=== PATIENT | male | born 1940 | race Caucasian/White ===

== ENCOUNTER 2025-02-07 10:15 | Outpatient (RCR) | payer MEDICARE, OTHER, SELFPAY ==
[2025-01-17 10:47] VITALS: BP 100/41; PULSE 75; RESP 18; TEMP 36.3; BMI 36.5
--- NOTE | 2025-01-17 12:11 | HP.PCM_ITS ---
History of Present Illness Date of Service: 01/17/25 Chief Complaint: Follow-up for a decubitus ulcer on the left buttocks, groin candidiasis severe, open areas on left lower leg from swelling and stasis dermatitis. History of Wound: 84-year-old white male who lives in a assisted living in [place] [facility] was brought in by his daughter. He is wheelchair- bound now since he had broken his right ankle. Which is healed by now but he still is not real good walking. He has severe swelling of the left leg right leg still looks good he does wear a brace on the right leg. Daughter and patient also state he sleeps in a recliner he does not sleep in a bed refuses to sleep in a bed. Does sit on a gel pack but he sits most of the day and does not walk and does not offload very well at all. History of congestive heart failure he had a heart stent and he currently has a Owens to because of his severe candidiasis of his groin area and penis. [facility] Home Medications ?Medication ?Instructions ?Recorded ?Last Taken ?Type aspirin 81 mg tablet,delayed 81 mg PO DAILY 01/17/25 U nknown History release (Adult Aspirin Regimen) atorvastatin 40 mg tablet 40 mg PO DAILY 01/17/25 Unkn own History bumetanide 1 mg tablet 2 mg PO DAILY 01/17/25 Unkno wn History calcium 500 mg (as 1 tab PO DAILY 01/17/25 Unkn own History carbonate)-vitamin D3 10 mcg (400 unit) tablet (Calcium 500 With D) cephalexin 500 mg tablet 500 mg PO DAILY 01/17/25 Unk nown History citalopram 10 mg tablet 10 mg PO DAILY 01/17/25 Unkn own History clotrimazole-betamethasone 1 applic topical 01/17/25 U nknown History %-0.05 % topical cream diphenhydramine HCl 25 mg capsule 50 mg PO QHS 5 Unknown History (Aler-Cap) empagliflozin 10 mg tablet 10 mg PO DAILY 01/17/25 Unk nown History (Jardiance) ezetimibe 10 mg tablet 10 mg PO DAILY 01/17/25 Unkn own History fexofenadine 180 mg tablet 180 mg PO DAILY 01/17/25 Un known History (Fanny Allergy) isosorbide mononitrate 30 mg 30 mg PO DAILY 01/17/25 U nknown History tablet,extended release 24 hr losartan 25 mg tablet 25 mg PO DAILY 01/17/25 Unkn own History metoprolol succinate 25 mg 25 mg PO DAILY 01/17/25 Unk nown History tablet,extended release 24 hr multivitamin (Daily Multi-Vitamin 1 tab PO DAILY 01/17 Unknown History tablet) nystatin 100,000 unit/gram topical 1 applic topical BI D 01/17/25 Unknown History ointment nystatin 100,000 unit/gram topical topical 01/17/25 Un known History powder omeprazole 20 mg capsule,delayed 20 mg PO DAILY Unknown History release potassium chloride 10 mEq 10 meq PO DAILY 01/17/25 Unk nown History tablet,extended release spironolactone 25 mg tablet 25 mg PO DAILY 01/17/25 Un known History spironolactone 25 mg tablet 25 mg PO DAILY 01/17/25 Un known History (Aldactone) tamsulosin 0.4 mg capsule 0.4 mg PO DAILY 01/17/25 Unk nown History trazodone 50 mg tablet 50 mg PO QHS 01/17/25 Unknow n History zinc sulfate 50 mg zinc (220 mg) 50 mg PO DAILY Unknown History capsule Social History Smoking Status: Never smoker ROS Constitutional Constitutional: Reports systems reviewed and no addt'l complaints, except as documented Eyes Eyes: Reports systems reviewed and no addt'l complaints, except as documented ENT HEENT: Reports systems reviewed and no addt'l complaints, except as documented Cardiovascular Cardiovascular: Reports systems reviewed and no addt'l complaints, except as d ocumented Respiratory/Chest Respiratory/Chest: Reports systems reviewed and no addt'l complaints, except as documented Gastrointestinal Gastrointestinal: Reports systems reviewed and no addt'l complaints, except as documented Genitourinary Genitourinary: Denies dysuria, hematuria, nocturia, oliguria, urinary frequency, urinary hesitancy, urinary incontinence or urinary urgency Musculoskeletal Musculoskeletal: Reports difficulty walking, limited range of motion and other Details: None ambulatory Integumentary Integumentary: Reports erythema, wounds and other Details: Groin has severe candidiasis encompassing his groin mostly on his left and covering his penis. Very erythematous and wet looking painful also has a wound on his left buttocks and a wound on his left lower leg that looks more like stasis dermatitis with skin breakdown. And swelling to the left lower leg also Neurologic Neurologic: Reports systems reviewed and no addt'l complaints, except as documented and weakness Psychiatric Psychiatric: Reports systems reviewed and no addt'l complaints, except as documented Endocrine Endocrinology: Reports systems reviewed and no addt'l complaints, except as documented Hematologic/Lymphatic Hematologic/Lymphatic: Reports systems reviewed and no addt'l complaints, except as documented Allergic/Immunologic Allergic/Immunologic: Reports systems reviewed and no addt'l complaints, except as documented Vital Signs Vital Signs Vital Signs: 01/17/25 10:47 Temperature 97.4 F L Temperature Source Temporal Pulse Rate 75 Respiratory Rate 18 Blood Pressure 100/41 L Blood Pressure Mean 60 Blood Pressure Source Monitor Blood Pressure Position Semi-Fowlers Blood Pressure Location Left Arm Weight Weight: 240 lb Body Mass Index (BMI) 36.5 Physical Exam Const oriented x3 General Appearance: cooperative Exam Limitations: no limitations HEENT normocephalic Head and Scalp: normal to inspection Face and Sinus: normal facial exam Eyes General Eye: normal appearance of both eyes Neck full ROM General: normal visual inspection Resp normal respiratory effort Effort and Inspection: able to speak in complete sentences Auscultation: clear to auscultation bilaterally Cardio regular rate and regular rhythm Palpation: normal PMI Rate: regular rate Rhythm: regular rhythm GI soft to palpation Palpation: soft and no hepatosplenomegaly Narrative: Currently has a Owens to CD because of his severe yeast infection in his groin. Bladder / Kidney Exam: catheter in place urethral Penis: erythema Meatus: erythema Back/Spine Cervical Spine: cervical ROM normal Thoracic Spine / Upper Back: normal to inspection Lumbar Spine / Lower Back: normal to inspection Pelvis: buttocks abnormal left (Open wound left buttocks decubitus ulcer) Extremity Extremity Narrative: Right leg within normal limits left leg swollen and has stasis dermatitis with a lot of redness and skin breakdown on the anterior cai area General Extremity: normal exam except as noted Skin no rashes or lesions noted Wound Narrative: Left buttocks left lower leg and candidiasis of his groin area severe Neuro oriented x3 Meningeal Signs: no meningeal signs Psych Appearance: grossly normal Speech: normal speech Thought Content: normal thought content Judgement: judgement good Debridement Note Debridement Note Wound debrided: Left buttocks decubitus ulcer Laterality: Left Wound Grade/Stage: Stage II Type of Debridement: Excisional debridement Anesthesia Used: 5% Lidocaine Gel Depth: Down to and including healthy tissue and in the subcutaneous layer Percentage of wound debrided: 100 Instrument Used: 5mm curette Tissue Removed: Fibrin and some devitalized tissue Severity: Fat Layer Exposed Amount of bleeding with debridement: Mild Bleeding Controlled with: Compression and gauze Patient tolerated procedure: Patient tolerated procedure well Post-Debridement Measurements and Additional Note: Post-Debridement Measurements/Treatment - Nurse 1 - General Ulcer Assessment Start: 01/17/25 09:24 Freq: Status: Active Protocol: LOWEXBenjamin Activity Type Activity Date Activity User E-sign Co-sign Detail Recorded Client Recorded Date Recorded By Document 01/17/25 10:47 SHASHA [id number] 01/17/25 10:57 SHASHA 01/17/25 10:47 - Today's Visit Information Type of service Initial Visit Arrival Mode Ambulatory Transfer Assistance None Patient Identification Verified (Name & Yes ) Patient Requires Transmission-Based No Precautions Height and Weight Height 5 ft 8 in Weight 240 lb Weight in Pounds 240.0 lbs Body Mass Index (BMI) 36.5 BMI Classification Obese Vital Signs Temperature (97.8 F-99.1 F) 97.4 F L Temperature Source Temporal Pulse Rate (60-100) 75 Pulse Location Monitor Respiratory Rate (12-18) 18 Respiratory rate source Observation Blood Pressure (90/60-120/80) 100/41 L Blood Pressure Mean 60 Source Monitor Position Semi-Fowlers Blood Pressure Location Left Arm History Since Last Visit- (Skip if this is Patient's initial visit) Have you changed medications since your No last visit? Any new allergies or adverse reactions No Had a fall/change in ADL's that may No increase risk of falls Signs or symptoms of abuse and/or No neglect since last visit Have you been in the hospital since your No last visit? Has dressing in place as prescribed Yes Has compression in place as prescribed N/A Has offloadiing in place as prescribed N/A Experienced any changes in pain level or No management Left Footwear No Footwear Right Footwear No Footwear Pain Scale: 0-10 Numeric Is Patient Pain Free? Yes Lower Extremity Assessment/ Foot Assessment/ Toe Nail Assessment Right -Posterior Tibial Palpable Yes -Dorsalis Pedis Palpable Yes -Extremity Color Hyperpigmented -Hair Growth on Legs No -Hair Growth on Toes No -Temperature of Extremity Warm -Capillary Refill Less than 3 Seconds -Dependent Rubor No -Blanched when Elevated No -Lipodermatosclerosis No -Other Deformity No -Prior Foot Ulcer No -Charcot Joint No -Prior Amputation No -Thick Yes -Discolored No -Deformed No -Improper Length & Hygeine No Left -Posterior Tibial Palpable Yes -Dorsalis Pedis Palpable Yes -Extremity Color Hyperpigmented -Hair Growth on Legs No -Hair Growth on Toes No -Temperature of Extremity Warm -Capillary Refill Less than 3 Seconds -Dependent Rubor No -Blanched when Elevated No -Lipodermatosclerosis No -Other Deformity No -Prior Foot Ulcer No -Charcot Joint No -Prior Amputation No -Thick Yes -Discolored No -Deformed No -Improper Length & Hygeine No Neuropathy Assessment Feet - Top Side and Bottom <Entered> (a) Communication Assessment Preferred language Sudanese [employer] Machine Required No Able to Read Yes Able to Write Yes Communication Tools None Caregiver Communication Skills No Impairment Impairment Right Hearing Abillity Use of Hearing Aid Left Hearing Abillity Use of Hearing Aid Visual Assistive Devices Glasses Teaching Assessment Preferences Verbal,Written, Demonstration Barriers to Learning None Readiness To Learn Good Willingness to Engage in Self Management Med Activies Readiness to Engage in Self Management Med Activities Anxiety Level Calm Cooperation Cooperative Perception Coherent Interest in Health Problem Asks Questions Education Importance Acknowledges Need Does Patient Smoke tobacco or other No substances Smoking Status Never smoker Is Patient Diabetic No Functional Assessment Recent Decline in Ability to Perform Ambulation, Bathing,Lower Body Dressing, Toileting, Transferring, Upper Body Dressing Assistive Device With Patient Yes Culture/Restorationist/Chemical Operator Cultural/Restorationist Needs that may affect No Treatment Plan Would you allow our hospital studio couch frame builder to No meet you for the purpose of spiritual/ emotional support? Chemical Operator to contact place of amish No Teaching: Wound Center *Welcome to the Wound Center -Person Taught Patient,Family -Teaching Method Discussion, Demonstration -Response to teaching Return Demonstration (a) 1 - -throughtout 2 - +_ 3 - + WC - Nurse 1 - General Ulcer Measurement Start: 01/17/25 09:24 Freq: Status: Active Protocol: Activity Type Activity Date Activity User E-sign Co-sign Detail Recorded Client Recorded Date Recorded By Document 01/17/25 10:47 RB [id number] 01/17/25 10:57 RB Edit Result 01/17/25 10:47 RB (1) [id number] 01/17/25 11:37 RB (1) 2. L buttock - Wound Comment(s) => REDDNESS AND EXCORIATION TO GROIN AREA AND PENIS. OWENS CATHETAR INTACT NO CATH SECURE NOTED. VOICED CONCERN TO DAUGHTER ABOUT NOT CTAH SECURE AND ALSO WASHING AND DRYING PERIAREA DAILY 01/17/25 10:47 Wound Center Nurse 1 2. L buttock -Combined with other wound No -Current Size (cm) - Length 1.5 -Current Size (cm) - Width 3 -Current Size (cm) - Depth 0.1 -Total Square Cm 4.5 -Photo Taken Yes -Tunneling No -Undermining/Tunneling No -Circular Undermining No -Exudate Amt Medium -Exudate Type Serosanguineous -Wound Margin Distinct, Outline Attached -Granulation Amt Medium (34-66%) -Granulation Quality Scalp Level -Slough/Fibrin Yes -Necrosis Amt Small (1-33%) -Necrotic Tissue Type Adherent Slough -Structure Exposed N/A -Texture (Madison-wound Skin Appearance) Assessed -Moisture (Madison-wound Skin Appearance) Assessed -Color (Madison-wound Skin Appearance) Assessed -Temperature (Madison-wound Skin No Abnormality Appearance) (Pt Warm) -Tenderness on Palpation (Madison-wound No Skin Appearance) -Ulcer Cleansing Wound Cleanser -Foul Odor after Cleansing No -Anesthetic Used 5% Lidocaine Gel -Wound Comment(s) REDDNESS AND EXCORIATION TO GROIN AREA AND PENIS. OWENS CATHETAR INTACT NO CATH SECURE NOTED. VOICED CONCERN TO DAUGHTER ABOUT NOT CTAH SECURE AND ALSO WASHING AND DRYING PERIAREA DAILY 1. LLE medial cluster -Combined with other wound No -Current Size (cm) - Length 2.2 -Current Size (cm) - Width 3.5 -Current Size (cm) - Depth 0.1 -Total Square Cm 7.70 -Photo Taken Yes -Tunneling No -Undermining/Tunneling No -Circular Undermining No -Exudate Amt Medium -Exudate Type Serosanguineous -Wound Margin Distinct, Outline Attached -Granulation Amt Medium (34-66%) -Granulation Quality Scalp Level -Slough/Fibrin Yes -Necrosis Amt Small (1-33%) -Necrotic Tissue Type Adherent Slough -Structure Exposed N/A -Texture (Madison-wound Skin Appearance) Assessed -Moisture (Madison-wound Skin Appearance) Assessed,Dry/ Scaly -Color (Madison-wound Skin Appearance) Assessed -Temperature (Madison-wound Skin No Abnormality Appearance) (Pt Warm) -Tenderness on Palpation (Madison-wound No Skin Appearance) -Ulcer Cleansing Wound Cleanser -Foul Odor after Cleansing No -Anesthetic Used 5% Lidocaine Gel Lower Limb Edema Present Yes Right Calf (cm) 40 Right Ankle (cm) 26.2 Left Calf (cm) 43.5 Left Ankle (cm) 27.5 WC - Nurse 2 - General Ulcer CM Notes Start: 01/17/25 09:24 Freq: Status: Active Protocol: Activity Type Activity Date Activity User E-sign Co-sign Detail Recorded Client Recorded Date Recorded By Document 01/17/25 11:16 [facility] [id number] 01/17/25 11:37 [facility] 01/17/25 11:16 Wound Center Nurse 2 2. L buttock -Time 11:26 -Correct Patient Yes -Correct Side, Site, Position Yes -Correct Procedure Yes -Procedure Performed Yes -Type of Procedure Debridement -Clinical Debridement Subcutaneous -Tissue Removed Subcutaneous -Post Debridement (cm) - Length 1.7 -Post Debridement (cm) - Width 3.2 -Post Debridement (cm) - Depth 0.2 -Total Square (Post) (cm) 5.44 -Area of Debridement (cm) - Length 1.7 -Area of Debridement (cm) - Width 3.2 -Total Square (Area) (cm) 5.44 -Tunneling No -Undermining/Tunneling No -Circular Undermining No -Wound/Ulcer Outcome Not Healed -Ulcer Cleansing Rinsed/ Irrigated with Saline -Foul Odor after Cleansing No -Bioengineered Tissue No -Bleeding Controlled with Pressure -Treatment Response Procedure Tolerated Well -Debridement - Subq, 1st 20sq cm No 1. LLE medial cluster -Time 11:18 -Correct Patient Yes -Correct Side, Site, Position Yes -Correct Procedure Yes -Procedure Performed Yes -Type of Procedure Debridement -Clinical Debridement Subcutaneous -Tissue Removed Subcutaneous -Post Debridement (cm) - Length 19 -Post Debridement (cm) - Width 14 -Post Debridement (cm) - Depth 0.1 -Total Square (Post) (cm) 266 -Area of Debridement (cm) - Length 19 -Area of Debridement (cm) - Width 14 -Total Square (Area) (cm) 266 -Tunneling No -Undermining/Tunneling No -Circular Undermining No -Wound/Ulcer Outcome Not Healed -Ulcer Cleansing Rinsed/ Irrigated with Saline -Foul Odor after Cleansing No -Bioengineered Tissue No -Bleeding Controlled with Pressure -Treatment Response Procedure Tolerated Well -Debridement - Subq, 1st 20sq cm Yes -Debridement, SubQ, ea addt'l 20sq cm 13 or part thereof Pain Scale: 0-10 Numeric Is Patient Pain Free? Yes - Nurse 3 - General Ulcer D/C NN Start: 01/17/25 09:24 Freq: Status: Active Protocol: Activity Type Activity Date Activity User E-sign Co-sign Detail Recorded Client Recorded Date Recorded By Document 01/17/25 11:44 MT [id number] 01/17/25 11:47 MT Edit Result 01/17/25 11:44 MT (1) [id number] 01/17/25 11:48 MT (1) RLE - Tubular Bandage => Double Layer - Size of Tubigrip Used => Size F - Size F ($) => 2 LLE - Tubular Bandage => Double Layer - Size of Tubigrip Used => Size F - Size F ($) => 2 Notes: => pt and daughter verbalized understanding of new wound dressings. 01/17/25 11:44 Wound Care Center Nurse 3 2. L buttock -Primary Dressing Applied Fibracol Plus 4x4,Silicone Border Foam 4x4 -Other Dressing adaptic -Primary Dressing Covered/Secured with Dry Gauze -Fibracol Plus 4x4 1 -Silicone Border Foam 4x4 1 1. LLE medial cluster -Other Dressing xerofrom -Primary Dressing Covered/Secured with Dry Gauze,Dry Gauze & Roll Gauze RLE -Tubular Bandage Double Layer -Size of Tubigrip Used Size F -Size F ($) 2 LLE -Tubular Bandage Double Layer -Size of Tubigrip Used Size F -Size F ($) 2 Pain Scale: 0-10 Numeric Is Patient Pain Free? Yes WC - Visit Discharge Discharge Condition Stable Ambulatory Status Ambulatory Transportation Private Auto Medication Reconcilliation completed & No provided to patient/care provider Clinical Summary of Care Provided Yes Notes: pt and daughter verbalized understanding of new wound dressings. Additional Wound Wound debrided: Left lower leg stasis dermatitis from peripheral vascular disease Type of Debridement: Excisional debridement Anesthesia Used: 5% Lidocaine Gel Depth: Down to and including healthy tissue Percentage of wound debrided: 100 Instrument Used: 5mm curette Tissue Removed: Devitalized tissue and fibrin Severity: Fat Layer Exposed Amount of bleeding with debridement: Mild Bleeding Controlled with: Compression and gauze Patient tolerated procedure: Patient tolerated procedure well Assessment/Plan Assessment/Plan (1) Peripheral vascular disease with stasis dermatitis: CODE(S): I87.2 - Venous insufficiency (chronic) (peripheral) (2) Candidiasis of genitalia: CODE(S): B37.49 - Other urogenital candidiasis PLAN: Wash groin area with soap and water and pat dry can still use the nystatin powder to the areas as prescribed before but also start taking fluconazole 100 mg every day for 30 days. Follow-up in 1 week Need labs prealbumin and a CBC. (3) Decubitus ulcer of left buttock, stage 2: CODE(S): L89.322 - Pressure ulcer of left buttock, stage 2 PLAN: Wash left buttocks was in Dial soap pat dry apply fibber call to left buttocks wound base moistened cover with Adaptic and a gel SAP dressing every day follow-up in 1 week (4) Edema of right lower leg: CODE(S): R60.0 - Localized edema (5) Congestive heart failure: CODE(S): I50.9 - Heart failure, unspecified QUALIFIERS: Heart failure type: right-sided Heart failure chronicity: chronic Qualified Code(s): I50.812 - Chronic right heart failure PLAN: Double layer Tubigrip to the bilateral lower legs for swelling
--- NOTE | 2025-01-18 10:42 | WC ---
PHOTO 01/17/25
--- NOTE | 2025-01-18 10:43 | WC ---
PHOTO 01/17/25 [facility]
[2025-01-24 10:29] VITALS: BP 126/47; PULSE 58; RESP 18; TEMP 36.1; BMI 36.5
--- NOTE | 2025-01-24 11:45 | PN.PCM_ITS ---
History of Present Illness Date of Service: 01/24/25 Chief Complaint: Follow-up for a decubitus ulcer on the left buttocks, groin candidiasis severe, open areas on left lower leg from swelling and stasis dermatitis. History of Wound: 84-year-old white male who lives in a assisted living in [place] [facility] was brought in by his daughter. He is wheelchair- bound now since he had broken his right ankle. Which is healed by now but he still is not real good walking. He has severe swelling of the left leg right leg still looks good he does wear a brace on the right leg. Daughter and patient also state he sleeps in a recliner he does not sleep in a bed refuses to sleep in a bed. Therefore has a huge open area on his left buttocks with positive depth opening. Does sit on a gel pack but he sits most of the day and does not walk and does not offload very well at all. History of congestive heart failure he had a heart stent and he currently has a Owens to because of his severe candidiasis of his groin area and penis. Progress of Wound: Left lower leg cluster is resolved using the Xeroform daughter is very happy buttocks still has an open area will continue using the Fibracol and Adaptic and foam dressing on it measurements are about the same to smaller on that. The left buttocks is doing better with the Fibracol and Adaptic and foam we will continue using that measurements are smaller And then the candidiasis he is doing well on the Diflucan is taking it daily and its like started to fade and looks much improved they are also using the topical nystatin powder on him also. Subjective Subjective Both patient and daughter are happy with outcomes Objective Data Objective Data Continues to improve we will continue using the Fibracol and Adaptic on the buttocks left leg just continue wearing the Tubigrip for compression. Vital Signs: Vital Signs Temp Pulse Resp BP O2 Del Method 96.9 F L 58 L 18 126/47 H Room Air 01/24/25 10:01/24/25 10:29 01/24/25 10:29 01/24/25 10:01/24/25 10:29 Oxygen Delivery Method Room Air Weight: 240 lb Body Mass Index (BMI) 36.5 Lab / Micro Data Attestation: I reviewed the patient's lab results. Physical Exam Const oriented x3 General Appearance: cooperative Exam Limitations: no limitations HEENT normocephalic Head and Scalp: normal to inspection Face and Sinus: normal facial exam Eyes General Eye: normal appearance of both eyes Neck full ROM General: normal visual inspection Resp normal respiratory effort Effort and Inspection: able to speak in complete sentences Auscultation: clear to auscultation bilaterally Cardio regular rate and regular rhythm Palpation: normal PMI Rate: regular rate Rhythm: regular rhythm GI soft to palpation Palpation: soft and no hepatosplenomegaly Narrative: Currently has a Owens to CD because of his severe yeast infection in his groin. Bladder / Kidney Exam: catheter in place urethral Penis: erythema Meatus: erythema Back/Spine Cervical Spine: cervical ROM normal Thoracic Spine / Upper Back: normal to inspection Lumbar Spine / Lower Back: normal to inspection Pelvis: buttocks abnormal left (Open wound left buttocks decubitus ulcer) Extremity Extremity Narrative: Right leg within normal limits left leg swollen and has stasis dermatitis with a lot of redness and skin breakdown on the anterior cai area General Extremity: normal exam except as noted Skin no rashes or lesions noted Wound Narrative: Left buttocks left lower leg and candidiasis of his groin area severe Neuro oriented x3 Meningeal Signs: no meningeal signs Psych Appearance: grossly normal Speech: normal speech Thought Content: normal thought content Judgement: judgement good Debridement Note Debridement Note Wound debrided: Left buttocks decubitus ulcer Laterality: Left Wound Grade/Stage: Stage II Type of Debridement: Excisional debridement Anesthesia Used: 5% Lidocaine Gel Depth: Down to and including healthy tissue and in the subcutaneous layer Percentage of wound debrided: 100 Instrument Used: 5mm curette Tissue Removed: Fibrin and some devitalized tissue Severity: Fat Layer Exposed Amount of bleeding with debridement: Mild Bleeding Controlled with: Compression and gauze Patient tolerated procedure: Patient tolerated procedure well Post-Debridement Measurements and Additional Note: Post-Debridement Measurements/Treatment WC - Nurse 1 - General Ulcer Assessment Start: 01/17/25 09:24 Freq: Status: Active Protocol: WILLARD Activity Type Activity Date Activity User E-sign Co-sign Detail Recorded Client Recorded Date Recorded By Document 01/17/25 10:47 RB [id number] 01/17/25 10:57 RB Document 01/24/25 10:29 KW [id number] 01/24/25 10:47 KW 01/17/25 01/24/25 10:47 10:29 WC - Today's Visit Information Type of service Initial Visit Initial Visit Arrival Mode Ambulatory Wheelchair Transfer Assistance None Accompanied by daughter Patient Identification Verified (Name & Yes Yes ) Patient Requires Transmission-Based No Precautions Height and Weight Height 5 ft 8 in Weight 240 lb Weight in Pounds 240.0 lbs Body Mass Index (BMI) 36.5 36.5 BMI Classification Obese Obese Vital Signs Temperature (97.8 F-99.1 F) 97.4 F L 96.9 F L Temperature Source Temporal Temporal Pulse Rate (60-100) 75 58 L Pulse Location Monitor Monitor Respiratory Rate (12-18) 18 18 Respiratory rate source Observation Observation Oxygen Delivery Method Room Air Blood Pressure (90/60-120/80) 100/41 L 126/47 H Blood Pressure Mean (mm Hg) 60 73 Source Monitor Monitor Position Semi-Fowlers Sitting Blood Pressure Location Left Arm Left Arm History Since Last Visit- (Skip if this is Patient's initial visit) Have you changed medications since your No No last visit? Any new allergies or adverse reactions No No Had a fall/change in ADL's that may No No increase risk of falls Signs or symptoms of abuse and/or No No neglect since last visit Have you been in the hospital since your No No last visit? Has dressing in place as prescribed Yes Yes Has compression in place as prescribed N/A Yes Has offloadiing in place as prescribed N/A Yes Experienced any changes in pain level or No No management Left Footwear No Footwear Removable Cast Walker/Walking Boot Right Footwear No Footwear Regular Shoe Pain Scale: 0-10 Numeric Is Patient Pain Free? Yes Yes Lower Extremity Assessment/ Foot Assessment/ Toe Nail Assessment Right -Posterior Tibial Palpable Yes -Dorsalis Pedis Palpable Yes -Extremity Color Hyperpigmented -Hair Growth on Legs No -Hair Growth on Toes No -Temperature of Extremity Warm -Capillary Refill Less than 3 Seconds -Dependent Rubor No -Blanched when Elevated No -Lipodermatosclerosis No -Other Deformity No -Prior Foot Ulcer No -Charcot Joint No -Prior Amputation No -Thick Yes -Discolored No -Deformed No -Improper Length & Hygeine No Left -Posterior Tibial Palpable Yes -Dorsalis Pedis Palpable Yes -Extremity Color Hyperpigmented -Hair Growth on Legs No -Hair Growth on Toes No -Temperature of Extremity Warm -Capillary Refill Less than 3 Seconds -Dependent Rubor No -Blanched when Elevated No -Lipodermatosclerosis No -Other Deformity No -Prior Foot Ulcer No -Charcot Joint No -Prior Amputation No -Thick Yes -Discolored No -Deformed No -Improper Length & Hygeine No Neuropathy Assessment Feet - Top Side and Bottom <Entered> (a) Communication Assessment Preferred language [place] Event Coordinator Marketing And Sales Required No Able to Read Yes Able to Write Yes Communication Tools None Caregiver Communication Skills No Impairment Impairment Right Hearing Abillity Use of Hearing Aid Left Hearing Abillity Use of Hearing Aid Visual Assistive Devices Glasses Teaching Assessment Preferences Verbal,Written, Demonstration Barriers to Learning None Readiness To Learn Good Willingness to Engage in Self Management Med Activies Readiness to Engage in Self Management Med Activities Anxiety Level Calm Cooperation Cooperative Perception Coherent Interest in Health Problem Asks Questions Education Importance Acknowledges Need Does Patient Smoke tobacco or other No substances Smoking Status Never smoker Is Patient Diabetic No Functional Assessment Recent Decline in Ability to Perform Ambulation, Bathing,Lower Body Dressing, Toileting, Transferring, Upper Body Dressing Assistive Device With Patient Yes Culture/Lutheran/Product Development Director Cultural/Lutheran Needs that may affect No Treatment Plan Would you allow our hospital director of flight operations to No meet you for the purpose of spiritual/ emotional support? Product Development Director to contact place of mu-ism No Teaching: Wound Center *Welcome to the Wound Center -Person Taught Patient,Family -Teaching Method Discussion, Demonstration -Response to teaching Return Demonstration (a) 1 - -throughtout 2 - +_ 3 - + WC - Nurse 1 - General Ulcer Measurement Start: 01/17/25 09:24 Freq: Status: Active Protocol: Activity Type Activity Date Activity User E-sign Co-sign Detail Recorded Client Recorded Date Recorded By Document 01/17/25 10:47 RB [id number] 01/17/25 10:57 RB Edit Result 01/17/25 10:47 RB (1) [id number] 01/17/25 11:37 RB Document 01/24/25 10:29 KW [id number] 01/24/25 10:47 KW (1) 2. L buttock - Wound Comment(s) => REDDNESS AND EXCORIATION TO GROIN AREA AND PENIS. OWENS CATHETAR INTACT NO CATH SECURE NOTED. VOICED CONCERN TO DAUGHTER ABOUT NOT CTAH SECURE AND ALSO WASHING AND DRYING PERIAREA DAILY 01/17/25 01/24/25 10:47 10:29 Wound Center Nurse 1 2. L buttock -Combined with other wound No -Current Size (cm) - Length 1.5 0.5 -Current Size (cm) - Width 3 3.5 -Current Size (cm) - Depth 0.1 0.1 -Total Square Cm 4.5 1.75 -Photo Taken Yes -Tunneling No -Undermining/Tunneling No -Circular Undermining No -Exudate Amt Medium Small -Exudate Type Serosanguineous Serosanguineous -Wound Margin Distinct, Distinct, Outline Outline Attached Attached -Granulation Amt Medium (34-66%) Medium (34-66%) -Granulation Quality [place] -Slough/Fibrin Yes -Necrosis Amt Small (1-33%) Medium (34-66%) -Necrotic Tissue Type Adherent Slough Adherent Slough -Structure Exposed N/A -Texture ([place]-wound Skin Appearance) Assessed Assessed -Moisture ([place]-wound Skin Appearance) Assessed Assessed -Color ([place]-wound Skin Appearance) Assessed Assessed, Erythema -Temperature ([place]-wound Skin No Abnormality No Abnormality Appearance) (Pt Warm) (Pt Warm) -Tenderness on Palpation ([place]-wound No Skin Appearance) -Ulcer Cleansing Wound Cleanser Soap and Water -Foul Odor after Cleansing No No -Anesthetic Used 5% Lidocaine 5% Lidocaine Gel Gel -Wound Comment(s) REDDNESS AND EXCORIATION TO GROIN AREA AND PENIS. OWENS CATHETAR INTACT NO CATH SECURE NOTED. VOICED CONCERN TO DAUGHTER ABOUT NOT CTAH SECURE AND ALSO WASHING AND DRYING PERIAREA DAILY 1. LLE medial cluster -Combined with other wound No -Current Size (cm) - Length 2.2 0.1 -Current Size (cm) - Width 3.5 0.1 -Current Size (cm) - Depth 0.1 0 -Total Square Cm 7.70 0.01 -Photo Taken Yes -Tunneling No -Undermining/Tunneling No -Circular Undermining No -Exudate Amt Medium None Present -Exudate Type Serosanguineous -Wound Margin Distinct, Outline Attached -Granulation Amt Medium (34-66%) -Granulation Quality [place] -Slough/Fibrin Yes -Necrosis Amt Small (1-33%) -Necrotic Tissue Type Adherent Slough -Structure Exposed N/A -Texture ([place]ison-wound Skin Appearance) Assessed -Moisture ([place]-wound Skin Appearance) Assessed,Dry/ Scaly -Color ([place]-wound Skin Appearance) Assessed Erythema -Temperature ([place]-wound Skin No Abnormality No Abnormality Appearance) (Pt Warm) (Pt Warm) -Tenderness on Palpation ([place]-wound No No Skin Appearance) -Ulcer Cleansing Wound Cleanser -Foul Odor after Cleansing No No -Anesthetic Used 5% Lidocaine Gel Lower Limb Edema Present Yes Right Calf (cm) 40 38.2 Right Ankle (cm) 26.2 24.5 Left Calf (cm) 43.5 40 Left Ankle (cm) 27.5 27.2 WC - Nurse 2 - General Ulcer CM Notes Start: 01/17/25 09:24 Freq: Status: Active Protocol: Activity Type Activity Date Activity User E-sign Co-sign Detail Recorded Client Recorded Date Recorded By Document 01/17/25 11:16 [facility] [id number] 01/17/25 11:37 [facility] Document 01/24/25 10:51 [facility] [id number] 01/24/25 10:59 [facility] 01/17/25 01/24/25 11:16 10:51 Wound Center Nurse 2 2. L buttock -Time 11:26 10:53 -Correct Patient Yes Yes -Correct Side, Site, Position Yes Yes -Correct Procedure Yes Yes -Procedure Performed Yes Yes -Type of Procedure Debridement Debridement -Clinical Debridement Subcutaneous Subcutaneous -Tissue Removed Subcutaneous Subcutaneous -Post Debridement (cm) - Length 1.7 0.7 -Post Debridement (cm) - Width 3.2 2.5 -Post Debridement (cm) - Depth 0.2 0.2 -Total Square (Post) (cm) 5.44 1.75 -Area of Debridement (cm) - Length 1.7 0.7 -Area of Debridement (cm) - Width 3.2 2.5 -Total Square (Area) (cm) 5.44 1.75 -Tunneling No No -Undermining/Tunneling No No -Circular Undermining No No -Wound/Ulcer Outcome Not Healed Not Healed -Ulcer Cleansing Rinsed/ Rinsed/ Irrigated with Irrigated with Saline Saline -Foul Odor after Cleansing No No -Bioengineered Tissue No No -Bleeding Controlled with Pressure Pressure -Treatment Response Procedure Procedure Tolerated Well Tolerated Well -Debridement - Subq, 1st 20sq cm No Yes 1. LLE medial cluster -Time 11:18 -Correct Patient Yes -Correct Side, Site, Position Yes -Correct Procedure Yes -Procedure Performed Yes -Type of Procedure Debridement -Clinical Debridement Subcutaneous -Tissue Removed Subcutaneous -Post Debridement (cm) - Length 19 -Post Debridement (cm) - Width 14 -Post Debridement (cm) - Depth 0.1 -Total Square (Post) (cm) 266 -Area of Debridement (cm) - Length 19 -Area of Debridement (cm) - Width 14 -Total Square (Area) (cm) 266 -Tunneling No -Undermining/Tunneling No -Circular Undermining No -Wound/Ulcer Outcome Not Healed -Ulcer Cleansing Rinsed/ Irrigated with Saline -Foul Odor after Cleansing No -Bioengineered Tissue No -Bleeding Controlled with Pressure -Treatment Response Procedure Tolerated Well -Debridement - Subq, 1st 20sq cm Yes -Debridement, SubQ, ea addt'l 20sq cm 13 or part thereof Pain Scale: 0-10 Numeric Is Patient Pain Free? Yes Yes WC - Nurse 3 - General Ulcer D/C NN Start: 01/17/25 09:24 Freq: Status: Active Protocol: Activity Type Activity Date Activity User E-sign Co-sign Detail Recorded Client Recorded Date Recorded By Document 01/17/25 11:44 MT [id number] 01/17/25 11:47 MT Edit Result 01/17/25 11:44 MT (1) [id number] 01/17/25 11:48 MT Document 01/24/25 11:16 DL [id number] 01/24/25 11:18 DL (1) RLE - Tubular Bandage => Double Layer - Size of Tubigrip Used => Size F - Size F ($) => 2 LLE - Tubular Bandage => Double Layer - Size of Tubigrip Used => Size F - Size F ($) => 2 Notes: => pt and daughter verbalized understanding of new wound dressings. 01/17/25 01/24/25 11:44 11:16 Wound Care Center Nurse 3 2. L buttock -Ulcer Cleansing Rinsed/ Irrigated with Saline -Foul Odor after Cleansing No -Primary Dressing Applied Fibracol Plus Fibracol Plus 4x4,Silicone 4x4,NonAdherent Border Foam 4x4 Contact Layer, Silicone Border Foam 4x4 -Other Dressing adaptic -Primary Dressing Covered/Secured with Dry Gauze -Fibracol Plus 4x4 1 1 -Silicone Border Foam 4x4 1 1 -Wound Comment(s) Zafar Double tubigrips 1. LLE medial cluster -Other Dressing xerofrom -Primary Dressing Covered/Secured with Dry Gauze,Dry Gauze & Roll Gauze RLE -Tubular Bandage Double Layer -Size of Tubigrip Used Size F -Size F ($) 2 LLE -Tubular Bandage Double Layer -Size of Tubigrip Used Size F -Size F ($) 2 Treatment Response Procedure Tolerated Well Pain Scale: 0-10 Numeric Is Patient Pain Free? Yes Yes WC - Visit Discharge Discharge Condition Stable Stable Ambulatory Status Ambulatory Wheelchair Transportation Private Auto Private Auto Medication Reconcilliation completed & No provided to patient/care provider Clinical Summary of Care Provided Yes Notes: pt and daughter verbalized understanding of new wound dressings. Facility Type [facility] Orders Sent Yes Additional Wound Tissue Removed: Devitalized tissue and fibrin Assessment/Plan Assessment/Plan (1) Peripheral vascular disease with stasis dermatitis: CODE(S): I87.2 - Venous insufficiency (chronic) (peripheral) (2) Candidiasis of genitalia: CODE(S): B37.49 - Other urogenital candidiasis PLAN: Wash groin area with soap and water and pat dry can still use the nystatin powder to the areas as prescribed before but also start taking fluconazole 100 mg every day for 30 days. Follow-up in 1 week Need labs prealbumin and a CBC. (3) Decubitus ulcer of left buttock, stage 2: CODE(S): L89.322 - Pressure ulcer of left buttock, stage 2 PLAN: Wash left buttocks was in Dial soap pat dry apply fibber call to left buttocks wound base moistened cover with Adaptic and a gel SAP dressing every day follow-up in 1 week (4) Edema of right lower leg: CODE(S): R60.0 - Localized edema (5) Congestive heart failure: CODE(S): I50.9 - Heart failure, unspecified QUALIFIERS: Heart failure chronicity: chronic Heart failure type: right-sided Qualified Code(s): I50.812 - Chronic right heart failure PLAN: Double layer Tubigrip to the bilateral lower legs for swelling
[2025-01-31 10:28] VITALS: BP 117/67; PULSE 63; RESP 18; TEMP 36.3; BMI 36.5
--- NOTE | 2025-01-31 11:52 | PN.PCM_ITS ---
History of Present Illness Date of Service: 01/31/25 Chief Complaint: Follow-up for a decubitus ulcer on the left buttocks, groin candidiasis severe, open areas on left lower leg from swelling and stasis dermatitis. History of Wound: 84-year-old white male who lives in a assisted living in [place] the [facility] home was brought in by his daughter. He is wheelchair- bound now since he had broken his right ankle. Which is healed by now but he still is not real good walking. He has severe swelling of the left leg right leg still looks good he does wear a brace on the right leg. Daughter and patient also state he sleeps in a recliner he does not sleep in a bed refuses to sleep in a bed. Therefore has a huge open area on his left buttocks with positive depth opening. Does sit on a gel pack but he sits most of the day and does not walk and does not offload very well at all. History of congestive heart failure he had a heart stent and he currently has a Owens to CD because of his severe candidiasis of his groin area and penis. Progress of Wound: Left lower leg cluster is resolved using the Xeroform daughter is very happy buttocks still has an open area will continue using the Fibracol and Adaptic and foam dressing on it measurements are about the same to smaller on that. The left buttocks cluster is doing well with the Fibracol and Adaptic and foam we will continue using that measurements are smaller And then the candidiasis he is doing well on the Diflucan is taking it daily and its like started to fade and looks much improved they are also using the topical nystatin powder on him also. Subjective Subjective Continues taking medication for the yeast infection and lives in a senior living so they are doing the directions for the buttocks wound tolerating everything well so far no concerns pretty quiet. Objective Data Objective Data So there is 2 areas that we clustered so it is that looks like it is bigger but the 2 areas some are very small but they are distant from the original wound area so it makes the wound look bigger but it actually is doing very fine with the Fibracol and Adaptic and foam we will continue with these items and patient is being turned on a regular basis does have a Owens to CD so it is not urinating or wetting the area at all. Vital Signs: Vital Signs Temp Pulse Resp BP O2 Del Method 97.4 F L 63 18 117/67 Room Air 01/31/25 10:28 01/31/25 10:28 01/31/25 10:28 01/31/25 10:28 01/31/25 10:28 Oxygen Delivery Method Room Air Weight: 240 lb Body Mass Index (BMI) 36.5 Lab / Micro Data Attestation: I reviewed the patient's lab results. Physical Exam Const oriented x3 General Appearance: cooperative Exam Limitations: no limitations HEENT normocephalic Head and Scalp: normal to inspection Face and Sinus: normal facial exam Eyes General Eye: normal appearance of both eyes Neck full ROM General: normal visual inspection Resp normal respiratory effort Effort and Inspection: able to speak in complete sentences Auscultation: clear to auscultation bilaterally Cardio regular rate and regular rhythm Palpation: normal PMI Rate: regular rate Rhythm: regular rhythm GI soft to palpation Palpation: soft and no hepatosplenomegaly Narrative: Currently has a Owens to CD because of his severe yeast infection in his groin. Bladder / Kidney Exam: catheter in place urethral Penis: erythema Meatus: erythema Back/Spine Cervical Spine: cervical ROM normal Thoracic Spine / Upper Back: normal to inspection Lumbar Spine / Lower Back: normal to inspection Pelvis: buttocks abnormal left (Open wound left buttocks decubitus ulcer) Extremity Extremity Narrative: Right leg within normal limits left leg swollen and has stasis dermatitis with a lot of redness and skin breakdown on the anterior cai area General Extremity: normal exam except as noted Skin no rashes or lesions noted Wound Narrative: Left buttocks left lower leg and candidiasis of his groin area severe Neuro oriented x3 Meningeal Signs: no meningeal signs Psych Appearance: grossly normal Speech: normal speech Thought Content: normal thought content Judgement: judgement good Debridement Note Debridement Note Wound debrided: Left buttocks cluster decubitus ulcer Laterality: Left Wound Grade/Stage: Stage II Type of Debridement: Excisional debridement Anesthesia Used: 5% Lidocaine Gel Depth: Down to and including healthy tissue and in the subcutaneous layer Percentage of wound debrided: 100 Instrument Used: 5mm curette Tissue Removed: Fibrin and some devitalized tissue Severity: Fat Layer Exposed Amount of bleeding with debridement: Mild Bleeding Controlled with: Compression and gauze Patient tolerated procedure: Patient tolerated procedure well Post-Debridement Measurements and Additional Note: Post-Debridement Measurements/Treatment WC - Nurse 1 - General Ulcer Assessment Start: 01/17/25 09:24 Freq: Status: Active Protocol: WC.LOWEXT Activity Type Activity Date Activity User E-sign Co-sign Detail Recorded Client Recorded Date Recorded By Document 01/17/25 10:47 RB [id number] 01/17/25 10:57 RB Document 01/24/25 10:29 KW [id number] 01/24/25 10:47 KW Document 01/31/25 10:28 MT [id number] 01/31/25 10:40 MT 01/17/25 01/24/25 01/31/25 10:47 10:29 10:28 - Today's Visit Information Type of service Initial Visit Initial Visit Follow-up Visit (Physician/[facility] ) Arrival Mode Ambulatory Wheelchair Ambulatory Transfer Assistance None Accompanied by daughter SG- GRANDDAUGHTER Patient Identification Verified (Name & Yes Yes Yes ) Patient Requires Transmission-Based No Precautions Safety Precautions Fall Prevention Height and Weight Height 5 ft 8 in Weight 240 lb Weight in Pounds 240.0 lbs Body Mass Index (BMI) 36.5 36.5 36.5 BMI Classification Obese Obese Obese Vital Signs Temperature (97.8 F-99.1 F) 97.4 F L 96.9 F L 97.4 F L Temperature Source Temporal Temporal Temporal Pulse Rate (60-100) 75 58 L 63 Pulse Location Monitor Monitor Monitor Respiratory Rate (12-18) 18 18 18 Respiratory rate source Observation Observation Observation Oxygen Delivery Method Room Air Room Air Blood Pressure (90/60-120/80) 100/41 L 126/47 H 117/67 Blood Pressure Mean (mm Hg) 60 73 83 Source Monitor Monitor Monitor Position Semi-Fowlers Sitting Sitting Blood Pressure Location Left Arm Left Arm Left Arm History Since Last Visit- (Skip if this is Patient's initial visit) Have you changed medications since your No No last visit? Any new allergies or adverse reactions No No Had a fall/change in ADL's that may No No increase risk of falls Signs or symptoms of abuse and/or No No neglect since last visit Have you been in the hospital since your No No last visit? Has dressing in place as prescribed Yes Yes Yes Has compression in place as prescribed N/A Yes Yes Has offloadiing in place as prescribed N/A Yes Yes Experienced any changes in pain level or No No Yes management Left Footwear No Footwear Removable Cast Regular Shoe Walker/Walking Boot Right Footwear No Footwear Regular Shoe Regular Shoe Pain Scale: 0-10 Numeric Is Patient Pain Free? Yes Yes Yes Lower Extremity Assessment/ Foot Assessment/ Toe Nail Assessment Right -Posterior Tibial Palpable Yes -Dorsalis Pedis Palpable Yes -Extremity Color Hyperpigmented -Hair Growth on Legs No -Hair Growth on Toes No -Temperature of Extremity Warm -Capillary Refill Less than 3 Seconds -Dependent Rubor No -Blanched when Elevated No -Lipodermatosclerosis No -Other Deformity No -Prior Foot Ulcer No -Charcot Joint No -Prior Amputation No -Thick Yes -Discolored No -Deformed No -Improper Length & Hygeine No Left -Posterior Tibial Palpable Yes -Dorsalis Pedis Palpable Yes -Extremity Color Hyperpigmented -Hair Growth on Legs No -Hair Growth on Toes No -Temperature of Extremity Warm -Capillary Refill Less than 3 Seconds -Dependent Rubor No -Blanched when Elevated No -Lipodermatosclerosis No -Other Deformity No -Prior Foot Ulcer No -Charcot Joint No -Prior Amputation No -Thick Yes -Discolored No -Deformed No -Improper Length & Hygeine No Neuropathy Assessment Feet - Top Side and Bottom <Entered> (a) Communication Assessment Preferred language Amharic Visual Specialist Required No Able to Read Yes Able to Write Yes Communication Tools None Caregiver Communication Skills No Impairment Impairment Right Hearing Abillity Use of Hearing Aid Left Hearing Abillity Use of Hearing Aid Visual Assistive Devices Glasses Teaching Assessment Preferences Verbal,Written, Demonstration Barriers to Learning None Readiness To Learn Good Willingness to Engage in Self Management Med Activies Readiness to Engage in Self Management Med Activities Anxiety Level Calm Cooperation Cooperative Perception Coherent Interest in Health Problem Asks Questions Education Importance Acknowledges Need Does Patient Smoke tobacco or other No substances Smoking Status Never smoker Is Patient Diabetic No Functional Assessment Recent Decline in Ability to Perform Ambulation, Bathing,Lower Body Dressing, Toileting, Transferring, Upper Body Dressing Assistive Device With Patient Yes Culture/Anglican/Nurse Practitioner Physician Assistant Cultural/Anglican Needs that may affect No Treatment Plan Would you allow our hospital set builder to No meet you for the purpose of spiritual/ emotional support? Nurse Practitioner Physician Assistant to contact place of uatsdin No Teaching: Wound Center *Welcome to the Wound Center -Person Taught Patient,Family -Teaching Method Discussion, Demonstration -Response to teaching Return Demonstration (a) 1 - -throughtout 2 - +_ 3 - + - Nurse 1 - General Ulcer Measurement Start: 01/17/25 09:24 Freq: Status: Active Protocol: Activity Type Activity Date Activity User E-sign Co-sign Detail Recorded Client Recorded Date Recorded By Document 01/17/25 10:47 RB [id number] 01/17/25 10:57 RB Edit Result 01/17/25 10:47 RB (1) [id number] 01/17/25 11:37 RB Document 01/24/25 10:29 KW [id number] 01/24/25 10:47 KW Document 01/31/25 10:28 MT [id number] 01/31/25 10:40 MT (1) 2. L buttock- CLUSTER - Wound Comment(s) => REDDNESS AND EXCORIATION TO GROIN AREA AND PENIS. OWENS CATHETAR INTACT NO CATH SECURE NOTED. VOICED CONCERN TO DAUGHTER ABOUT NOT CTAH SECURE AND ALSO WASHING AND DRYING PERIAREA DAILY 01/17/25 01/24/25 01/31/25 10:47 10:29 10:28 Wound Center Nurse 1 1. LLE medial cluster -Combined with other wound No -Current Size (cm) - Length 2.2 0.1 0.1 -Current Size (cm) - Width 3.5 0.1 0.1 -Current Size (cm) - Depth 0.1 0 0.1 -Total Square Cm 7.70 0.01 0.01 -Date of Last Picture (Recall this 01/31/25 field) -Photo Taken Yes Yes -Tunneling No No -Undermining/Tunneling No No -Circular Undermining No No -Exudate Amt Medium None Present Small -Exudate Type Serosanguineous Serosanguineous -Wound Margin Distinct, Flat & Intact Outline Attached -Granulation Amt Medium (34-66%) Large (67-100%) -Granulation Quality [place] Pale,[place] -Slough/Fibrin Yes No -Necrosis Amt Small (1-33%) Small (1-33%) -Necrotic Tissue Type Adherent Slough Adherent Slough -Structure Exposed N/A -Texture ([place]-wound Skin Appearance) Assessed Assessed -Moisture ([place]-wound Skin Appearance) Assessed,Dry/ Assessed Scaly -Color ([place]-wound Skin Appearance) Assessed Erythema Assessed, Erythema -Temperature ([place]-wound Skin No Abnormality No Abnormality Appearance) (Pt Warm) (Pt Warm) -Tenderness on Palpation ([place]-wound No No No Skin Appearance) -Ulcer Cleansing Wound Cleanser Soap and Water -Foul Odor after Cleansing No No No -Anesthetic Used 5% Lidocaine 5% Lidocaine Gel Gel 2. L buttock- CLUSTER -Combined with other wound No -Current Size (cm) - Length 1.5 0.5 0.2 -Current Size (cm) - Width 3 3.5 3.0 -Current Size (cm) - Depth 0.1 0.1 0.1 -Total Square Cm 4.5 1.75 0.60 -Date of Last Picture (Recall this 01/31/25 field) -Photo Taken Yes No -Epithelialization Large 67-100% -Tunneling No No -Undermining/Tunneling No No -Circular Undermining No No -Exudate Amt Medium Small Small -Exudate Type Serosanguineous Serosanguineous Serosanguineous -Wound Margin Distinct, Distinct, Flat & Intact Outline Outline Attached Attached -Granulation Amt Medium (34-66%) Medium (34-66%) Large (67-100%) -Granulation Quality [place] Pale,[place] -Slough/Fibrin Yes -Necrosis Amt Small (1-33%) Medium (34-66%) Small (1-33%) -Necrotic Tissue Type Adherent Slough Adherent Slough Adherent Slough -Structure Exposed N/A -Texture ([place]ison-wound Skin Appearance) Assessed Assessed Assessed -Moisture ([place]-wound Skin Appearance) Assessed Assessed Assessed -Color ([place]-wound Skin Appearance) Assessed Assessed, Assessed Erythema -Temperature ([place]-wound Skin No Abnormality No Abnormality No Abnormality Appearance) (Pt Warm) (Pt Warm) (Pt Warm) -Tenderness on Palpation (Madison-wound No No Skin Appearance) -Ulcer Cleansing Wound Cleanser Soap and Water Soap and Water -Foul Odor after Cleansing No No No -Anesthetic Used 5% Lidocaine 5% Lidocaine 5% Lidocaine Gel Gel Gel -Wound Comment(s) REDDNESS AND EXCORIATION TO GROIN AREA AND PENIS. OWENS CATHETAR INTACT NO CATH SECURE NOTED. VOICED CONCERN TO DAUGHTER ABOUT NOT CTAH SECURE AND ALSO WASHING AND DRYING PERIAREA DAILY Lower Limb Edema Present Yes NA Right Calf (cm) 40 38.2 Right Ankle (cm) 26.2 24.5 Left Calf (cm) 43.5 40 Left Ankle (cm) 27.5 27.2 WC - Nurse 2 - General Ulcer CM Notes Start: 01/17/25 09:24 Freq: Status: Active Protocol: Activity Type Activity Date Activity User E-sign Co-sign Detail Recorded Client Recorded Date Recorded By Document 01/17/25 11:16 [facility] [id number] 01/17/25 11:37 [facility] Document 01/24/25 10:51 [facility] [id number] 01/24/25 10:59 [facility] Document 01/31/25 10:46 [facility] [id number] 01/31/25 10:52 [facility] 01/17/25 01/24/25 01/31/25 11:16 10:51 10:46 Wound Center Nurse 2 1. LLE medial cluster -Time 11:18 -Correct Patient Yes -Correct Side, Site, Position Yes -Correct Procedure Yes -Procedure Performed Yes -Type of Procedure Debridement -Clinical Debridement Subcutaneous -Tissue Removed Subcutaneous -Post Debridement (cm) - Length 19 -Post Debridement (cm) - Width 14 -Post Debridement (cm) - Depth 0.1 -Total Square (Post) (cm) 266 -Area of Debridement (cm) - Length 19 -Area of Debridement (cm) - Width 14 -Total Square (Area) (cm) 266 -Tunneling No -Undermining/Tunneling No -Circular Undermining No -Wound/Ulcer Outcome Not Healed -Ulcer Cleansing Rinsed/ Irrigated with Saline -Foul Odor after Cleansing No -Bioengineered Tissue No -Bleeding Controlled with Pressure -Treatment Response Procedure Tolerated Well -Debridement - Subq, 1st 20sq cm Yes -Debridement, SubQ, ea addt'l 20sq cm 13 or part thereof 2. L buttock- CLUSTER -Time 11:26 10:53 10:46 -Correct Patient Yes Yes Yes -Correct Side, Site, Position Yes Yes Yes -Correct Procedure Yes Yes Yes -Procedure Performed Yes Yes Yes -Type of Procedure Debridement Debridement Debridement -Clinical Debridement Subcutaneous Subcutaneous Subcutaneous -Tissue Removed Subcutaneous Subcutaneous Subcutaneous -Post Debridement (cm) - Length 1.7 0.7 4 -Post Debridement (cm) - Width 3.2 2.5 3 -Post Debridement (cm) - Depth 0.2 0.2 0.1 -Total Square (Post) (cm) 5.44 1.75 12 -Area of Debridement (cm) - Length 1.7 0.7 4 -Area of Debridement (cm) - Width 3.2 2.5 3 -Total Square (Area) (cm) 5.44 1.75 12 -Tunneling No No No -Undermining/Tunneling No No No -Circular Undermining No No No -Wound/Ulcer Outcome Not Healed Not Healed Not Healed -Ulcer Cleansing Rinsed/ Rinsed/ Rinsed/ Irrigated with Irrigated with Irrigated with Saline Saline Saline -Foul Odor after Cleansing No No No -Bioengineered Tissue No No No -Bleeding Controlled with Pressure Pressure Pressure -Treatment Response Procedure Procedure Procedure Tolerated Well Tolerated Well Tolerated Well -Debridement - Subq, 1st 20sq cm No Yes Yes Pain Scale: 0-10 Numeric Is Patient Pain Free? Yes Yes Yes WC - Nurse 3 - General Ulcer D/C NN Start: 01/17/25 09:24 Freq: Status: Active Protocol: Activity Type Activity Date Activity User E-sign Co-sign Detail Recorded Client Recorded Date Recorded By Document 01/17/25 11:44 MT [id number] 01/17/25 11:47 MT Edit Result 01/17/25 11:44 MT (1) [id number] 01/17/25 11:48 MT Document 01/24/25 11:16 DL [id number] 01/24/25 11:18 DL Document 01/31/25 11:08 DL [id number] 01/31/25 11:09 DL (1) RLE - Tubular Bandage => Double Layer - Size of Tubigrip Used => Size F - Size F ($) => 2 LLE - Tubular Bandage => Double Layer - Size of Tubigrip Used => Size F - Size F ($) => 2 Notes: => pt and daughter verbalized understanding of new wound dressings. 01/17/25 01/24/25 01/31/25 11:44 11:16 11:08 Wound Care Center Nurse 3 1. LLE medial cluster -Other Dressing xerofrom -Primary Dressing Covered/Secured with Dry Gauze,Dry Gauze & Roll Gauze 2. L buttock- CLUSTER -Ulcer Cleansing Rinsed/ Rinsed/ Irrigated with Irrigated with Saline Saline -Foul Odor after Cleansing No No -Primary Dressing Applied Fibracol Plus Fibracol Plus Fibracol Plus 4x4,Silicone 4x4,NonAdherent 4x4,NonAdherent Border Foam 4x4 Contact Layer, Contact Layer, Silicone Border Silicone Border Foam 4x4 Foam 4x4 -Other Dressing adaptic -Primary Dressing Covered/Secured with Dry Gauze -Fibracol Plus 4x4 1 1 1 -Silicone Border Foam 4x4 1 1 1 -Wound Comment(s) Zafar Double tubigrips RLE -Tubular Bandage Double Layer -Size of Tubigrip Used Size F -Size F ($) 2 LLE -Tubular Bandage Double Layer -Size of Tubigrip Used Size F -Size F ($) 2 Treatment Response Procedure Procedure Tolerated Well Tolerated Well Pain Scale: 0-10 Numeric Is Patient Pain Free? Yes Yes Yes WC - Visit Discharge Discharge Condition Stable Stable Stable Ambulatory Status Ambulatory Wheelchair Unsteady, Wheelchair Transportation Private Auto Private Auto Private Auto Medication Reconcilliation completed & No provided to patient/care provider Clinical Summary of Care Provided Yes Notes: pt and daughter verbalized understanding of new wound dressings. Facility Type Nursing Home Care Nursing Home Care Facility Facility Orders Sent Yes Yes Additional Wound Tissue Removed: Devitalized tissue and fibrin Assessment/Plan Assessment/Plan (1) Peripheral vascular disease with stasis dermatitis: CODE(S): I87.2 - Venous insufficiency (chronic) (peripheral) (2) Candidiasis of genitalia: CODE(S): B37.49 - Other urogenital candidiasis PLAN: Wash groin area with soap and water and pat dry can still use the nystatin powder to the areas as prescribed before but also start taking fluconazole 100 mg every day for 30 days. Follow-up in 1 week Need labs prealbumin and a CBC. (3) Decubitus ulcer of left buttock, stage 2: CODE(S): L89.322 - Pressure ulcer of left buttock, stage 2 PLAN: Wash left buttocks was in Dial soap pat dry apply fibrocol to left buttocks wound base moistened cover with Adaptic and a XL SAP dressing every day follow-up in 1 week (4) Edema of right lower leg: CODE(S): R60.0 - Localized edema (5) Congestive heart failure: CODE(S): I50.9 - Heart failure, unspecified QUALIFIERS: Heart failure type: right-sided Heart failure chronicity: chronic Qualified Code(s): I50.812 - Chronic right heart failure PLAN: Double layer Tubigrip to the bilateral lower legs for swelling
--- NOTE | 2025-02-01 10:15 | WC ---
PHOTO 01/31/25 LEFT BUTTOCKS
[2025-02-07 10:15] VITALS: BP 122/71; PULSE 70; RESP 18; TEMP 36.2; BMI 36.5
--- NOTE | 2025-02-07 12:16 | PCM.WC.PN ---
History of Present Illness Date of Service: 02/07/25 Chief Complaint: Follow-up for a decubitus ulcer on the left buttocks, groin candidiasis severe, open areas on left lower leg from swelling and stasis dermatitis. History of Wound: 84-year-old white male who lives in a assisted living in [place] the [facility] home was brought in by his daughter. He is wheelchair-bound now since he had broken his right ankle. Which is healed by now but he still is not real good walking. He has severe swelling of the left leg right leg still looks good he does wear a brace on the right leg. Daughter and patient also state he sleeps in a recliner he does not sleep in a bed refuses to sleep in a bed. Therefore has a huge open area on his left buttocks with positive depth opening. Does sit on a gel pack but he sits most of the day and does not walk and does not offload very well at all. History of congestive heart failure he had a heart stent and he currently has a Owens to because of his severe candidiasis of his groin area and penis. Progress of Wound: Left lower leg cluster is resolved using the Xeroform daughter is very happy buttocks is also healed and patient is to use A&E ointment on them to keep it moisturized couple of times a day. The candidiasis is not as red as it was but it is still there because he insist on wearing these nylon latex type pants because they move around better than the cotton sweatpants that he should be wearing. And today he was not even wearing any kind of underwear so there was no cotton in on his skin. The only thing I can suggest is that we can increase the Diflucan for another month at 200 mg a day and he can wear should pillowcase in the folds of his abdomen where the the most yeast is and that would help the skin not touching each other and the sweating as but I tried to explain to them there is just too much heat generated here and it is causing more problems. Patient is to be discharged today and he can follow-up as needed but there is not much else I can do for him for the yeast the retirement can take care of the rest if they open areas or there is problems down the road they can make an office visit but otherwise he is discharged to back to his retirement and he can follow-up as needed Subjective Subjective Daughter is very pleased with outcomes and will continue to fight with him about wearing maybe cotton underwear and cotton sweatpants rather than the nylon ones. Objective Data Objective Data Buttocks is healed looks good no sign of infection I told him to use A&E ointment on that as needed 1 or 2 times a day to keep it supple and soft As for the candidiasis he is to increase the Diflucan to 200 mg a day for another month and he can follow-up as needed but he needs to wear cotton underwear and cotton pants things separate. Vital Signs: Vital Signs Temp Pulse Resp BP O2 Del Method 97.1 F L 70 18 122/71 H Room Air 02/07/25 10:15 02/07/25 10:15 02/07/25 10:15 02/07/25 10:15 01/31/25 10:28 Oxygen Delivery Method Room Air Weight: 240 lb Body Mass Index (BMI) 36.5 Physical Exam Const oriented x3 General Appearance: cooperative Exam Limitations: no limitations HEENT normocephalic Head and Scalp: normal to inspection Face and Sinus: normal facial exam Eyes General Eye: normal appearance of both eyes Neck full ROM General: normal visual inspection Resp normal respiratory effort Effort and Inspection: able to speak in complete sentences Auscultation: clear to auscultation bilaterally Cardio regular rate and regular rhythm Palpation: normal PMI Rate: regular rate Rhythm: regular rhythm GI soft to palpation Palpation: soft and no hepatosplenomegaly Narrative: Currently has a Owens to CD because of his severe yeast infection in his groin. Bladder / Kidney Exam: catheter in place urethral Penis: erythema Meatus: erythema Back/Spine Cervical Spine: cervical ROM normal Thoracic Spine / Upper Back: normal to inspection Lumbar Spine / Lower Back: normal to inspection Pelvis: buttocks abnormal left (Open wound left buttocks decubitus ulcer) Extremity Extremity Narrative: Right leg within normal limits left leg swollen and has stasis dermatitis with a lot of redness and skin breakdown on the anterior cai area General Extremity: normal exam except as noted Skin no rashes or lesions noted Wound Narrative: Left buttocks left lower leg and candidiasis of his groin area severe Neuro oriented x3 Meningeal Signs: no meningeal signs Psych Appearance: grossly normal Speech: normal speech Thought Content: normal thought content Judgement: judgement good Debridement Note Debridement Note No debridement was completed: No debridement was completed today Post-Debridement Measurements and Additional Note: Post-Debridement Measurements/Treatment WC - Nurse 1 - General Ulcer Assessment Start: 01/17/25 09:24 Freq: Status: Active Protocol: WILLARD Activity Type Activity Date Activity User E-sign Co-sign Detail Recorded Client Recorded Date Recorded By Document 01/17/25 10:47 RB [id number] 01/17/25 10:57 RB Document 01/24/25 10:29 KW [id number] 01/24/25 10:47 KW Document 01/31/25 10:28 MT [id number] 01/31/25 10:40 MT Document 02/07/25 10:15 RB [id number] 02/07/25 10:20 RB 01/17/25 01/24/25 01/31/25 10:47 10:29 10:28 WC - Today's Visit Information Type of service Initial Visit Initial Visit Follow-up Visit (Physician/ROTOPRINTER ) Arrival Mode Ambulatory Wheelchair Ambulatory Transfer Assistance None Accompanied by daughter SG- GRANDDAUGHTER Patient Identification Verified (Name & Yes Yes Yes ) Patient Requires Transmission-Based No Precautions Safety Precautions Fall Prevention Height and Weight Height 5 ft 8 in Weight 240 lb Weight in Pounds 240.0 lbs Body Mass Index (BMI) 36.5 36.5 36.5 BMI Classification Obese Obese Obese Vital Signs Temperature (97.8 F-99.1 F) 97.4 F L 96.9 F L 97.4 F L Temperature Source Temporal Temporal Temporal Pulse Rate (60-100) 75 58 L 63 Pulse Location Monitor Monitor Monitor Respiratory Rate (12-18) 18 18 18 Respiratory rate source Observation Observation Observation Oxygen Delivery Method Room Air Room Air Blood Pressure (90/60-120/80) 100/41 L 126/47 H 117/67 Blood Pressure Mean (mm Hg) 60 73 83 Source Monitor Monitor Monitor Position Semi-Fowlers Sitting Sitting Blood Pressure Location Left Arm Left Arm Left Arm History Since Last Visit- (Skip if this is Patient's initial visit) Have you changed medications since your No No last visit? Any new allergies or adverse reactions No No Had a fall/change in ADL's that may No No increase risk of falls Signs or symptoms of abuse and/or No No neglect since last visit Have you been in the hospital since your No No last visit? Has dressing in place as prescribed Yes Yes Yes Has compression in place as prescribed N/A Yes Yes Has offloadiing in place as prescribed N/A Yes Yes Experienced any changes in pain level or No No Yes management Left Footwear No Footwear Removable Cast Regular Shoe Walker/Walking Boot Right Footwear No Footwear Regular Shoe Regular Shoe Pain Scale: 0-10 Numeric Is Patient Pain Free? Yes Yes Yes Lower Extremity Assessment/ Foot Assessment/ Toe Nail Assessment Right -Posterior Tibial Palpable Yes -Dorsalis Pedis Palpable Yes -Extremity Color Hyperpigmented -Hair Growth on Legs No -Hair Growth on Toes No -Temperature of Extremity Warm -Capillary Refill Less than 3 Seconds -Dependent Rubor No -Blanched when Elevated No -Lipodermatosclerosis No -Other Deformity No -Prior Foot Ulcer No -Charcot Joint No -Prior Amputation No -Thick Yes -Discolored No -Deformed No -Improper Length & Hygeine No Left -Posterior Tibial Palpable Yes -Dorsalis Pedis Palpable Yes -Extremity Color Hyperpigmented -Hair Growth on Legs No -Hair Growth on Toes No -Temperature of Extremity Warm -Capillary Refill Less than 3 Seconds -Dependent Rubor No -Blanched when Elevated No -Lipodermatosclerosis No -Other Deformity No -Prior Foot Ulcer No -Charcot Joint No -Prior Amputation No -Thick Yes -Discolored No -Deformed No -Improper Length & Hygeine No Neuropathy Assessment Feet - Top Side and Bottom <Entered> (a) Communication Assessment Preferred language Belarusian Rate Clerk Required No Able to Read Yes Able to Write Yes Communication Tools None Caregiver Communication Skills No Impairment Impairment Right Hearing Abillity Use of Hearing Aid Left Hearing Abillity Use of Hearing Aid Visual Assistive Devices Glasses Teaching Assessment Preferences Verbal,Written, Demonstration Barriers to Learning None Readiness To Learn Good Willingness to Engage in Self Management Med Activies Readiness to Engage in Self Management Med Activities Anxiety Level Calm Cooperation Cooperative Perception Coherent Interest in Health Problem Asks Questions Education Importance Acknowledges Need Does Patient Smoke tobacco or other No substances Smoking Status Never smoker Is Patient Diabetic No Functional Assessment Recent Decline in Ability to Perform Ambulation, Bathing,Lower Body Dressing, Toileting, Transferring, Upper Body Dressing Assistive Device With Patient Yes Culture/Anabaptism/Custom Feed Mill Operator Helper Cultural/Anabaptism Needs that may affect No Treatment Plan Would you allow our hospital academic interventionist to No meet you for the purpose of spiritual/ emotional support? Custom Feed Mill Operator Helper to contact place of rastafari No Teaching: Wound Center *Welcome to the Wound Center -Person Taught Patient,Family -Teaching Method Discussion, Demonstration -Response to teaching Return Demonstration 02/07/25 10:15 WC - Today's Visit Information Type of service Follow-up Visit (Physician/ROTOPRINTER ) Arrival Mode Ambulatory Transfer Assistance None Accompanied by Patient Identification Verified (Name & Yes ) Patient Requires Transmission-Based No Precautions Safety Precautions Height and Weight Height Weight Weight in Pounds Body Mass Index (BMI) 36.5 BMI Classification Obese Vital Signs Temperature (97.8 F-99.1 F) 97.1 F L Temperature Source Temporal Pulse Rate (60-100) 70 Pulse Location Monitor Respiratory Rate (12-18) 18 Respiratory rate source Observation Oxygen Delivery Method Blood Pressure (90/60-120/80) 122/71 H Blood Pressure Mean (mm Hg) 88 Source Monitor Position Semi-Fowlers Blood Pressure Location Left Arm History Since Last Visit- (Skip if this is Patient's initial visit) Have you changed medications since your No last visit? Any new allergies or adverse reactions No Had a fall/change in ADL's that may No increase risk of falls Signs or symptoms of abuse and/or No neglect since last visit Have you been in the hospital since your No last visit? Has dressing in place as prescribed Yes Has compression in place as prescribed Yes Has offloadiing in place as prescribed Yes Experienced any changes in pain level or No management Left Footwear Right Footwear Pain Scale: 0-10 Numeric Is Patient Pain Free? Yes Lower Extremity Assessment/ Foot Assessment/ Toe Nail Assessment Right -Posterior Tibial Palpable -Dorsalis Pedis Palpable -Extremity Color -Hair Growth on Legs -Hair Growth on Toes -Temperature of Extremity -Capillary Refill -Dependent Rubor -Blanched when Elevated -Lipodermatosclerosis -Other Deformity -Prior Foot Ulcer -Charcot Joint -Prior Amputation -Thick -Discolored -Deformed -Improper Length & Hygeine Left -Posterior Tibial Palpable -Dorsalis Pedis Palpable -Extremity Color -Hair Growth on Legs -Hair Growth on Toes -Temperature of Extremity -Capillary Refill -Dependent Rubor -Blanched when Elevated -Lipodermatosclerosis -Other Deformity -Prior Foot Ulcer -Charcot Joint -Prior Amputation -Thick -Discolored -Deformed -Improper Length & Hygeine Neuropathy Assessment Feet - Top Side and Bottom Communication Assessment Preferred r d manager Required Able to Read Able to Write Communication Tools Caregiver Communication Skills Impairment Right Hearing Abillity Left Hearing Abillity Visual Assistive Devices Teaching Assessment Preferences Barriers to Learning Readiness To Learn Willingness to Engage in Self Management Activies Readiness to Engage in Self Management Activities Anxiety Level Cooperation Perception Interest in Health Problem Education Importance Does Patient Smoke tobacco or other substances Smoking Status Is Patient Diabetic Functional Assessment Recent Decline in Ability to Perform Assistive Device With Patient Culture/Anabaptism/Custom Feed Mill Operator Helper Cultural/Anabaptism Needs that may affect Treatment Plan Would you allow our hospital academic interventionist to meet you for the purpose of spiritual/ emotional support? Custom Feed Mill Operator Helper to contact place of rastafari Teaching: Wound Center *Welcome to the Wound Center -Person Taught -Teaching Method -Response to teaching (a) 1 - -throughtout 2 - +_ 3 - + WC - Nurse 1 - General Ulcer Measurement Start: 01/17/25 09:24 Freq: Status: Active Protocol: Activity Type Activity Date Activity User E-sign Co-sign Detail Recorded Client Recorded Date Recorded By Document 01/17/25 10:47 RB [id number] 01/17/25 10:57 RB Edit Result 01/17/25 10:47 RB (1) [id number] 01/17/25 11:37 RB Document 01/24/25 10:29 KW [id number] 01/24/25 10:47 KW Document 01/31/25 10:28 MT [id number] 01/31/25 10:40 MT Document 02/07/25 10:15 RB [id number] 02/07/25 10:20 RB (1) 2. L buttock- CLUSTER - Wound Comment(s) => REDDNESS AND EXCORIATION TO GROIN AREA AND PENIS. OWENS CATHETAR INTACT NO CATH SECURE NOTED. VOICED CONCERN TO DAUGHTER ABOUT NOT CTAH SECURE AND ALSO WASHING AND DRYING PERIAREA DAILY 01/17/25 01/24/25 01/31/25 10:47 10:29 10:28 Wound Center Nurse 1 2. L buttock- CLUSTER -Combined with other wound No -Current Size (cm) - Length 1.5 0.5 0.2 -Current Size (cm) - Width 3 3.5 3.0 -Current Size (cm) - Depth 0.1 0.1 0.1 -Total Square Cm 4.5 1.75 0.60 -Date of Last Picture (Recall this 01/31/25 field) -Photo Taken Yes No -Epithelialization Large 67-100% -Tunneling No No -Undermining/Tunneling No No -Circular Undermining No No -Exudate Amt Medium Small Small -Exudate Type Serosanguineous Serosanguineous Serosanguineous -Wound Margin Distinct, Distinct, Flat & Intact Outline Outline Attached Attached -Granulation Amt Medium (34-66%) Medium (34-66%) Large (67-100%) -Granulation Quality [place] Pale,[place] -Slough/Fibrin Yes -Necrosis Amt Small (1-33%) Medium (34-66%) Small (1-33%) -Necrotic Tissue Type Adherent Slough Adherent Slough Adherent Slough -Structure Exposed N/A -Texture (Madison-wound Skin Appearance) Assessed Assessed Assessed -Moisture ([place]-wound Skin Appearance) Assessed Assessed Assessed -Color ([place]-wound Skin Appearance) Assessed Assessed, Assessed Erythema -Temperature ([place]ison-wound Skin No Abnormality No Abnormality No Abnormality Appearance) (Pt Warm) (Pt Warm) (Pt Warm) -Tenderness on Palpation (Madison-wound No No Skin Appearance) -Ulcer Cleansing Wound Cleanser Soap and Water Soap and Water -Foul Odor after Cleansing No No No -Anesthetic Used 5% Lidocaine 5% Lidocaine 5% Lidocaine Gel Gel Gel -Wound Comment(s) REDDNESS AND EXCORIATION TO GROIN AREA AND PENIS. OWENS CATHETAR INTACT NO CATH SECURE NOTED. VOICED CONCERN TO DAUGHTER ABOUT NOT CTAH SECURE AND ALSO WASHING AND DRYING PERIAREA DAILY 1. LLE medial cluster -Combined with other wound No -Current Size (cm) - Length 2.2 0.1 0.1 -Current Size (cm) - Width 3.5 0.1 0.1 -Current Size (cm) - Depth 0.1 0 0.1 -Total Square Cm 7.70 0.01 0.01 -Date of Last Picture (Recall this 01/31/25 field) -Photo Taken Yes Yes -Tunneling No No -Undermining/Tunneling No No -Circular Undermining No No -Exudate Amt Medium None Present Small -Exudate Type Serosanguineous Serosanguineous -Wound Margin Distinct, Flat & Intact Outline Attached -Granulation Amt Medium (34-66%) Large (67-100%) -Granulation Quality [place] Pale,[place] -Slough/Fibrin Yes No -Necrosis Amt Small (1-33%) Small (1-33%) -Necrotic Tissue Type Adherent Slough Adherent Slough -Structure Exposed N/A -Texture (Madison-wound Skin Appearance) Assessed Assessed -Moisture ([place]ison-wound Skin Appearance) Assessed,Dry/ Assessed Scaly -Color ([place]ison-wound Skin Appearance) Assessed Erythema Assessed, Erythema -Temperature ([place]ison-wound Skin No Abnormality No Abnormality Appearance) (Pt Warm) (Pt Warm) -Tenderness on Palpation (Madison-wound No No No Skin Appearance) -Ulcer Cleansing Wound Cleanser Soap and Water -Foul Odor after Cleansing No No No -Anesthetic Used 5% Lidocaine 5% Lidocaine Gel Gel Lower Limb Edema Present Yes NA Right Calf (cm) 40 38.2 Right Ankle (cm) 26.2 24.5 Left Calf (cm) 43.5 40 Left Ankle (cm) 27.5 27.2 02/07/25 10:15 Wound Center Nurse 1 2. L buttock- CLUSTER -Combined with other wound No -Current Size (cm) - Length 0.1 -Current Size (cm) - Width 0.1 -Current Size (cm) - Depth 0.1 -Total Square Cm 0.01 -Date of Last Picture (Recall this field) -Photo Taken Yes -Epithelialization -Tunneling No -Undermining/Tunneling No -Circular Undermining No -Exudate Amt Medium -Exudate Type Serosanguineous -Wound Margin Distinct, Outline Attached -Granulation Amt Medium (34-66%) -Granulation Quality [place] -Slough/Fibrin Yes -Necrosis Amt Medium (34-66%) -Necrotic Tissue Type Adherent Slough -Structure Exposed N/A -Texture (Madison-wound Skin Appearance) Assessed, Excoriation -Moisture (Madison-wound Skin Appearance) Assessed -Color (Madison-wound Skin Appearance) Assessed -Temperature (Madison-wound Skin No Abnormality Appearance) (Pt Warm) -Tenderness on Palpation (Madison-wound Skin Appearance) -Ulcer Cleansing Wound Cleanser -Foul Odor after Cleansing -Anesthetic Used 5% Lidocaine Gel -Wound Comment(s) 1. LLE medial cluster -Combined with other wound -Current Size (cm) - Length -Current Size (cm) - Width -Current Size (cm) - Depth -Total Square Cm -Date of Last Picture (Recall this field) -Photo Taken -Tunneling -Undermining/Tunneling -Circular Undermining -Exudate Amt -Exudate Type -Wound Margin -Granulation Amt -Granulation Quality -Slough/Fibrin -Necrosis Amt -Necrotic Tissue Type -Structure Exposed -Texture (Madison-wound Skin Appearance) -Moisture (Madison-wound Skin Appearance) -Color (Madison-wound Skin Appearance) -Temperature (Madison-wound Skin Appearance) -Tenderness on Palpation (Madison-wound Skin Appearance) -Ulcer Cleansing -Foul Odor after Cleansing -Anesthetic Used Lower Limb Edema Present Right Calf (cm) Right Ankle (cm) Left Calf (cm) Left Ankle (cm) WC - Nurse 2 - General Ulcer CM Notes Start: 01/17/25 09:24 Freq: Status: Active Protocol: Activity Type Activity Date Activity User E-sign Co-sign Detail Recorded Client Recorded Date Recorded By Document 01/17/25 11:16 [employer] [id number] 01/17/25 11:37 [employer] Document 01/24/25 10:51 [facility] [id number] 01/24/25 10:59 [employer] Document 01/31/25 10:46 [employer] [id number] 01/31/25 10:52 [employer] Document 02/07/25 10:36 [employer] [id number] 02/07/25 10:42 BMF 01/17/25 01/24/25 01/31/25 11:16 10:51 10:46 Wound Center Nurse 2 2. L buttock- CLUSTER -Time 11:26 10:53 10:46 -Correct Patient Yes Yes Yes -Correct Side, Site, Position Yes Yes Yes -Correct Procedure Yes Yes Yes -Procedure Performed Yes Yes Yes -Type of Procedure Debridement Debridement Debridement -Clinical Debridement Subcutaneous Subcutaneous Subcutaneous -Tissue Removed Subcutaneous Subcutaneous Subcutaneous -Post Debridement (cm) - Length 1.7 0.7 4 -Post Debridement (cm) - Width 3.2 2.5 3 -Post Debridement (cm) - Depth 0.2 0.2 0.1 -Total Square (Post) (cm) 5.44 1.75 12 -Area of Debridement (cm) - Length 1.7 0.7 4 -Area of Debridement (cm) - Width 3.2 2.5 3 -Total Square (Area) (cm) 5.44 1.75 12 -Tunneling No No No -Undermining/Tunneling No No No -Circular Undermining No No No -Wound/Ulcer Outcome Not Healed Not Healed Not Healed -Ulcer Cleansing Rinsed/ Rinsed/ Rinsed/ Irrigated with Irrigated with Irrigated with Saline Saline Saline -Foul Odor after Cleansing No No No -Bioengineered Tissue No No No -Bleeding Controlled with Pressure Pressure Pressure -Treatment Response Procedure Procedure Procedure Tolerated Well Tolerated Well Tolerated Well -Debridement - Subq, 1st 20sq cm No Yes Yes 1. LLE [facility] cluster -Time 11:18 -Correct Patient Yes -Correct Side, Site, Position Yes -Correct Procedure Yes -Procedure Performed Yes -Type of Procedure Debridement -Clinical Debridement Subcutaneous -Tissue Removed Subcutaneous -Post Debridement (cm) - Length 19 -Post Debridement (cm) - Width 14 -Post Debridement (cm) - Depth 0.1 -Total Square (Post) (cm) 266 -Area of Debridement (cm) - Length 19 -Area of Debridement (cm) - Width 14 -Total Square (Area) (cm) 266 -Tunneling No -Undermining/Tunneling No -Circular Undermining No -Wound/Ulcer Outcome Not Healed -Ulcer Cleansing Rinsed/ Irrigated with Saline -Foul Odor after Cleansing No -Bioengineered Tissue No -Bleeding Controlled with Pressure -Treatment Response Procedure Tolerated Well -Debridement - Subq, 1st 20sq cm Yes -Debridement, SubQ, ea addt'l 20sq cm 13 or part thereof Pain Scale: 0-10 Numeric Is Patient Pain Free? Yes Yes Yes 02/07/25 10:36 Wound Center Nurse 2 2. L buttock- CLUSTER -Time 10:37 -Correct Patient -Correct Side, Site, Position -Correct Procedure -Procedure Performed No -Type of Procedure -Clinical Debridement -Tissue Removed -Post Debridement (cm) - Length 0 -Post Debridement (cm) - Width 0 -Post Debridement (cm) - Depth 0 -Total Square (Post) (cm) 0 -Area of Debridement (cm) - Length 0 -Area of Debridement (cm) - Width 0 -Total Square (Area) (cm) 0 -Tunneling -Undermining/Tunneling -Circular Undermining -Wound/Ulcer Outcome Healed- Epithelialized -Ulcer Cleansing -Foul Odor after Cleansing -Bioengineered Tissue -Bleeding Controlled with NA -Treatment Response -Debridement - Subq, 1st 20sq cm 1. LLE medial cluster -Time -Correct Patient -Correct Side, Site, Position -Correct Procedure -Procedure Performed -Type of Procedure -Clinical Debridement -Tissue Removed -Post Debridement (cm) - Length -Post Debridement (cm) - Width -Post Debridement (cm) - Depth -Total Square (Post) (cm) -Area of Debridement (cm) - Length -Area of Debridement (cm) - Width -Total Square (Area) (cm) -Tunneling -Undermining/Tunneling -Circular Undermining -Wound/Ulcer Outcome -Ulcer Cleansing -Foul Odor after Cleansing -Bioengineered Tissue -Bleeding Controlled with -Treatment Response -Debridement - Subq, 1st 20sq cm -Debridement, SubQ, ea addt'l 20sq cm or part thereof Pain Scale: 0-10 Numeric Is Patient Pain Free? Yes WC - Nurse 3 - General Ulcer D/C NN Start: 01/17/25 09:24 Freq: Status: Active Protocol: Activity Type Activity Date Activity User E-sign Co-sign Detail Recorded Client Recorded Date Recorded By Document 01/17/25 11:44 MT [id number] 01/17/25 11:47 MT Edit Result 01/17/25 11:44 MT (1) [id number] 01/17/25 11:48 MT Document 01/24/25 11:16 DL [id number] 01/24/25 11:18 DL Document 01/31/25 11:08 DL [id number] 01/31/25 11:09 DL Document 02/07/25 10:40 RB [id number] 02/07/25 10:41 RB Document 02/07/25 10:54 BMF [id number] 02/07/25 10:55 BMF (1) RLE - Tubular Bandage => Double Layer - Size of Tubigrip Used => Size F - Size F ($) => 2 LLE - Tubular Bandage => Double Layer - Size of Tubigrip Used => Size F - Size F ($) => 2 Notes: => pt and daughter verbalized understanding of new wound dressings. 01/17/25 01/24/25 01/31/25 11:44 11:16 11:08 Wound Care Center Nurse 3 2. L buttock- CLUSTER -Ulcer Cleansing Rinsed/ Rinsed/ Irrigated with Irrigated with Saline Saline -Foul Odor after Cleansing No No -Primary Dressing Applied Fibracol Plus Fibracol Plus Fibracol Plus 4x4,Silicone 4x4,NonAdherent 4x4,NonAdherent Border Foam 4x4 Contact Layer, Contact Layer, Silicone Border Silicone Border Foam 4x4 Foam 4x4 -Other Dressing adaptic -Primary Dressing Covered/Secured with Dry Gauze -Fibracol Plus 4x4 1 1 1 -Promogran Paulina Matter -Silicone Border Foam 4x4 1 1 1 -Silicone Border Foam 6x6 -Wound Comment(s) Zafar Double tubigrips 1. LLE medial cluster -Other Dressing xerofrom -Primary Dressing Covered/Secured with Dry Gauze,Dry Gauze & Roll Gauze RLE -Tubular Bandage Double Layer -Size of Tubigrip Used Size F -Size F ($) 2 LLE -Tubular Bandage Double Layer -Size of Tubigrip Used Size F -Size F ($) 2 -Stockings Treatment Response Procedure Procedure Tolerated Well Tolerated Well Pain Scale: 0-10 Numeric Is Patient Pain Free? Yes Yes Yes WC - Visit Discharge Discharge Condition Stable Stable Stable Ambulatory Status Ambulatory Wheelchair Unsteady, Wheelchair Transportation Private Auto Private Auto Private Auto Accompanied by Medication Reconcilliation completed & No provided to patient/care provider Clinical Summary of Care Provided Yes Notes: pt and daughter verbalized understanding of new wound dressings. Facility Type Invoice [facility] Facility Facility Orders Sent Yes Yes 02/07/25 02/07/25 10:40 10:54 [facility] Nurse 3 2. L buttock- CLUSTER -Ulcer Cleansing Rinsed/ Irrigated with Saline -Foul Odor after Cleansing -Primary Dressing Applied NonAdherent Contact Layer, Promogran Paulina Matter, Silicone Border Foam 6x6 -Other Dressing -Primary Dressing Covered/Secured with -Fibracol Plus 4x4 -Promogran Paulina Matter 1 -Silicone Border Foam 4x4 -Silicone Border Foam 6x6 1 -Wound Comment(s) 1. LLE medial cluster -Other Dressing -Primary Dressing Covered/Secured with RLE -Tubular Bandage -Size of Tubigrip Used -Size F ($) LLE -Tubular Bandage -Size of Tubigrip Used -Size F ($) -Stockings Yes: pt own tubigrip Treatment Response Procedure Procedure Tolerated Well Tolerated Well Pain Scale: 0-10 Numeric Is Patient Pain Free? Yes Yes WC - Visit Discharge Discharge Condition Stable Stable Ambulatory Status Wheelchair Wheelchair Transportation Private Auto Private Auto Accompanied by DAUGHTER Medication Reconcilliation completed & No provided to patient/care provider Clinical Summary of Care Provided Yes Notes: Facility Type Intermediate Care Facility Orders Sent Assessment/Plan Assessment/Plan (1) Peripheral vascular disease with stasis dermatitis: CODE(S): I87.2 - Venous insufficiency (chronic) (peripheral) (2) Candidiasis of genitalia: CODE(S): B37.49 - Other urogenital candidiasis PLAN: Wash groin area with soap and water and pat dry can still use the nystatin powder to the areas as prescribed before but also start taking fluconazole 200 mg every day for 30 days. (3) Decubitus ulcer of left buttock, stage 2: CODE(S): L89.322 - Pressure ulcer of left buttock, stage 2 PLAN: Resolved and patient is just used A&E ointment on buttocks 2-3 times a day to keep it supple (4) Edema of right lower leg: CODE(S): R60.0 - Localized edema (5) Congestive heart failure: CODE(S): I50.9 - Heart failure, unspecified QUALIFIERS: Heart failure type: right-sided Heart failure chronicity: chronic Qualified Code(s): I50.812 - Chronic right heart failure PLAN: Double layer Tubigrip to the bilateral lower legs for swelling
--- NOTE | 2025-02-07 15:14 | WC ---
PHOTO 02/07/25 LEFT BUTTOCK
== END 2025-02-07 15:43 | disposition home or self-care (01) ==
LOC: WC 10:15
PROVIDERS: PCP Family Medicine; Referring Provider Family Medicine; Visit Provider Nurse Practitioner
DX: I87.2 Venous insufficiency (chronic) (peripheral) (principal); L89.322 Pressure ulcer of left buttock, stage 2; I50.812 Chronic right heart failure; I73.9 Peripheral vascular disease, unspecified; Z99.3 Dependence on wheelchair; Z79.82 Long term (current) use of aspirin; B37.49 Other urogenital candidiasis; R60.0 Localized edema
CPT/HCPCS: 11042; 11045; 99204; 99213; G0463